=== PATIENT | female | born 1955 | race Caucasian/White ===

== ENCOUNTER 2024-06-02 13:08 | Emergency (ER) | payer MEDICARE, OTHER ==
[~2024-06-02] VITALS: Ht 165.1 cm; Wt 74.8 kg
[2024-06-02 13:08] VITALS: BP 160/124; PULSE 98; RESP 18; TEMP 98.3; O2SAT 98
[2024-06-02 14:24] LABS: BASOPHIL # 0.1 10^3/uL (0.0-0.1); BASOPHIL % 0.6 % (0.1-1.2); EOSINOPHIL # 0.1 10^3/uL (0.0-0.2); EOSINOPHIL % 0.5 % (0.0-5.0); HEMATOCRIT(ML) 49.7 % (36.0-46.0); HEMOGLOBIN 16.3 g/dL (12.0-15.0); LYMPHOCYTES # 1.78 10^3/uL1 (1.0-4.8); LYMPHOCYTES % 17.2 % (24.0-44.0); MEAN CORP HGB 31.5 pg (26-34); MEAN CORP HGB CONCENTRATION 32.8 g/dL (33-36.5); MEAN CORP VOLUME 96.1 fL (78-100); MONOCYTES # 0.5 10^3/uL (0.3-0.8); NEUTROPHIL # 7.9 10^3/uL (1.8-7.7); NEUTROPHILS % 76.5 % (41.0-85.0); PLATELET COUNT 137 10^3/uL (150-400); RED BLOOD CELL 5.17 10^6/uL (4.00-5.20); WHITE BLOOD CELL 10.3 10^3/uL (4.5-11.0)
[2024-06-02 14:29] LABS: BILIRUBIN,URINE NEGATIVE (NEGATIVE); LEUKOCYTE ESTERASE ,URINE TRACE (NEGATIVE); NITRATE,URINE NEGATIVE (NEGATIVE); UROBILINOGEN,URINE 0.2 E.U./dL (0.2)
[2024-06-02 14:34] LABS: ANION GAP 18.5; CARBON DIOXIDE 25.2 mmol/L (20.0-32); POTASSIUM 3.7 mmol/L (3.6-5.2)
[2024-06-02 14:35] LABS: ALBUMIN(ML) 4.1 g/dL (3.4-5.0); ALBUMIN/GLOBULIN RATIO 0.953; BUN/CREATININE RATIO 8.08 (10.0-20.0); CALCIUM 9.9 mg/dL (8.4-10.5); CREATININE SERUM 0.99 mg/dL (0.59-1.40); EST GFR, NON-AA 55.5 (>/=60)
[2024-06-02 14:38] LABS: APPEARANCE,URINE CLEAR; UA COLOR YELLOW
[2024-06-02 14:38] LABS: +ADD MANUAL DIFF(NO CHRG) NO
[2024-06-02 15:09] VITALS: BP 207/104; PULSE 85; RESP 18; TEMP 98.3; O2SAT 98
[2024-06-02] MEDS ORDERED: APRESOLINE ONE (15:09)
[2024-06-02] MEDS ORDERED: SUBLIMAZE 100MCG/2ML ONE (15:09)
[2024-06-02] MEDS ORDERED: ZOFRAN ONE ×2 (15:09→15:44)
[2024-06-02] MEDS: ZOFRAN IV STA ×2 (15:15→16:02)
[2024-06-02] MEDS: SUBLIMAZE 100MCG/2ML IV STA (15:15)
[2024-06-02] MEDS ORDERED: SOLU-MEDROL ONE (15:26)
[2024-06-02] MEDS ORDERED: BENADRYL ONE (15:26)
[2024-06-02] MEDS: SOLU-MEDROL IV STA (15:32)
[2024-06-02] MEDS: BENADRYL IV STA (15:32)
[2024-06-02] MEDS ORDERED: PHENERGAN ONE (15:42)
[2024-06-02] MEDS ORDERED: NS 1000ML 1,000 ML ONE (15:53)
[2024-06-02] MEDS: APRESOLINE IV STA (15:57)
[2024-06-02] MEDS: NS 1000ML 1,000 ML IV STA (16:02)
[2024-06-02] MEDS: TRANDATE IV STA (16:02)
[2024-06-02 16:07] VITALS: BP 205/108; PULSE 76; RESP 18; TEMP 98.3; O2SAT 98
[2024-06-02 16:16] VITALS: BP 181/90; PULSE 75; RESP 18; TEMP 97.9; O2SAT 98
[2024-06-02 16:30] VITALS: BP 169/83; PULSE 70; RESP 18; TEMP 97.9; O2SAT 98
[2024-06-02 16:45] VITALS: BP 152/68; PULSE 83; RESP 18; TEMP 97.9; O2SAT 98
== END 2024-06-02 16:52 | disposition short-term general hospital (02) ==
LOC: ER 13:08
DX: R10.30 Lower abdominal pain, unspecified (principal); I16.0 Hypertensive urgency; I10 Essential (primary) hypertension; Z90.89 Acquired absence of other organs; Z98.890 Other specified postprocedural states
CPT/HCPCS: 99285; 96374; 96375; 96361; 96376; 87086; 80053; 85025; 36415; 81001; J7030; J0360; J1200; J2405 ×2; J3010; J2919; J2550; J2930